=== PATIENT | male | born 1985 | race Caucasian/White ===

== ENCOUNTER 2017-02-20 11:38 | Emergency (ER) | payer OTHER, BC ==
[~2017-02-20] VITALS: Ht 182.9 cm; Wt 94.3 kg
--- NOTE | 2017-02-20 11:49 | ED Lower Extremity ---
General Chief Complaint: Lower Extremity Stated Complaint: L ANKLE POSS BREAK Source: patient, RN notes reviewed, spouse Exam Limitations: no limitations History of Present Illness Time seen by provider: 11:45 Initial Comments Patient presents c/ c/o right lower leg pain p/ falling earlier this AM. Was carrying his daughter and running in to get out of the rain and hit some standing water on slick concrete causing him to fall. Experienced immediate left lower leg pain that has slowly worsened since fall. Denies any other injuries @ this time. Onset: just prior to arrival Severity: moderate Pain/Injury Location: right leg Method of Injury: fell Modifying Factors: Worse With Movement, Improves With Rest Allergies and Home Medications Allergies Coded Allergies: Penicillins (Verified Allergy, Unknown, 02/20/17) Home Medications Oxycodone HCl 5 Mg Tablet, 5 MG PO Q6H PRN for ankle pain, #24 Ref 0 Prescribed by: BREONNA RODRIGEZ on 02/20/17 1212 Constitutional: see HPI Musculoskeletal: see HPI, other (right lower leg pain) All Other Systems Reviewed Negative Unless Noted: Yes (Negative excepted noted.) Past Akgdipc-Dslwkh-Qflajb Hx Patient Social History Recent Foreign Travel: No Contact w/Someone Who Travel: No Physical Exam Vital Signs Vital Sign - Last 12Hours 02/20/17 11:42 Temp 98.3 Pulse 67 Resp 18 B/P (MAP) 155/82 Pulse Ox 99 O2 Delivery Room Air Capillary Refill : General Appearance: WD/WN, no apparent distress Cardiovascular: regular rate, rhythm Respiratory: no respiratory distress Knees: right knee normal inspection Ankles: right ankle bone tenderness, right ankle limited range of motion, right ankle pain, right ankle soft tissue tenderness, right ankle swelling Feet: right foot normal inspection Neurologic/Psychiatric: no motor/sensory deficits, alert, oriented x 3 Skin: warm/dry Progress/Results/Core Measures Results/Orders My Orders Orders - BREONNA RODRIGEZ DO Tibia/Fibula, Right, 2 Views (02/20/17 11:49) Ankle, Right, 3 Views (02/20/17 ) Oxycodone Immediate Rel Tablet (Oxyir Ta (02/20/17 12:00) Oxycodone Immediate Rel Tablet (Oxyir Ta (02/20/17 12:00) Steplite (02/20/17 12:07) Medications Given in ED Current Medications Medications Dose Ordered Sig/Blanca Route Start Time Stop Time Status Last Admin Dose Admin Oxycodone HCl 5 mg ONCE ONCE PO 02/20/17 12:00 02/20/17 12:02 DC 02/20/17 12:07 5 MG Vital Signs/I&O Vital Sign - Last 12Hours 02/20/17 11:42 Temp 98.3 Pulse 67 Resp 18 B/P (MAP) 155/82 Pulse Ox 99 O2 Delivery Room Air Diagnostic Imaging Diagonstic Imaging: Xray Plain Films/CT/US/NM/MRI: leg, ankle Reviewed: Reviewed by Me ((+) spiral fx right fibula) Departure Impression Impression: Primary Impression: Spiral fracture of shaft of fibula Disposition: HOME, SELF-CARE Condition: Stable Departure-Patient Inst. Decision time for Depature: 12:10 Referrals: NO,LOCAL PHYSICIAN (PCP) Primary Care Physician Patient Instructions: Fibula Fracture (DC) Add. Discharge Instructions: All discharge instructions reviewed with patient and/or family. Voiced understanding. FOLLOW UP WITH YOUR ORTHOPEDIC PHYSICIAN ON WEDNESDAY, 02/22, FOR FURTHER EVALUATION AND RECOMMENDATIONS. Scripts Oxycodone HCl (Oxycodone HCl) 5 Mg Tablet 5 MG PO Q6H Y for ankle pain, #24 TAB 0 Refills Prov: BREONNA RODRIGEZ DO 02/20/17 BREONNA RODRIGEZ DO Feb 20, 2017 11:49
[2017-02-20] MEDS ORDERED: OXYC5TAB71 PO (12:12)
--- NOTE | 2017-02-20 12:12 | Diagnostic Imaging Report ---
INDICATION: Right ankle pain, injury. COMPARISON: None. FINDINGS: Three views of the right ankle demonstrate nondisplaced distal fibula fracture. Ankle mortise is intact. There is no dislocation. IMPRESSION: Distal fibula diaphysis fracture. No ankle mortise involvement. Dictated by: Dictated on workstation # [id number]
--- NOTE | 2017-02-20 12:14 | Diagnostic Imaging Report ---
INDICATION: Right leg trauma, pain. COMPARISON: None. FINDINGS: Two views of the right tibia and fibula demonstrate a nondisplaced fracture of the distal fibula. The tibia is unremarkable. IMPRESSION: Distal fibula fracture. Dictated by: Dictated on workstation # [id number]
[2017-02-20 12:18] VITALS: BP 155/82
== END 2017-02-20 12:18 | disposition home or self-care (01) ==
LOC: EDUNIT# 11:38 → ER 11:39
DX: S82.441A Displaced spiral fracture of shaft of right fibula, initial encounter for closed fracture (principal); W18.09XA Striking against other object with subsequent fall, initial encounter
CPT/HCPCS: 73590; 73610; 99283